=== PATIENT | female | born 1995 | race Caucasian/White ===

== ENCOUNTER → 2017-09-25 | Outpatient (CLI) | payer OTHER | LOC: WOUNDCARE 09:06 | PROVIDERS: ATTEND Surgery | DX: L02.436 Carbuncle of left lower limb (principal); S71.102A Unspecified open wound, left thigh, initial encounter; L97.122 Non-pressure chronic ulcer of left thigh with fat layer exposed; E66.01 Morbid (severe) obesity due to excess calories | CPT/HCPCS: 11042 ==

== ENCOUNTER → 2017-10-11 | Outpatient (CLI) | payer OTHER | LOC: WOUNDCARE 10:21 | PROVIDERS: ATTEND Surgery | DX: S71.102A Unspecified open wound, left thigh, initial encounter (principal); L97.122 Non-pressure chronic ulcer of left thigh with fat layer exposed; E66.01 Morbid (severe) obesity due to excess calories; L92.8 Other granulomatous disorders of the skin and subcutaneous tissue | CPT/HCPCS: 11042 ==

== ENCOUNTER → 2017-10-25 | Outpatient (CLI) | payer OTHER | LOC: WOUNDCARE 09:21 | PROVIDERS: ATTEND Surgery | DX: S71.102A Unspecified open wound, left thigh, initial encounter (principal); L97.122 Non-pressure chronic ulcer of left thigh with fat layer exposed; E66.01 Morbid (severe) obesity due to excess calories | CPT/HCPCS: 11042 ==

== ENCOUNTER → 2017-11-01 | Outpatient (CLI) | payer OTHER | LOC: WOUNDCARE 09:11 | PROVIDERS: ATTEND Surgery | DX: L97.122 Non-pressure chronic ulcer of left thigh with fat layer exposed (principal); E66.01 Morbid (severe) obesity due to excess calories; L92.8 Other granulomatous disorders of the skin and subcutaneous tissue; S71.102A Unspecified open wound, left thigh, initial encounter | CPT/HCPCS: 17250 ==

== ENCOUNTER → 2017-11-15 | Outpatient (CLI) | payer OTHER | LOC: WOUNDCARE 09:20 | PROVIDERS: ATTEND Surgery | DX: L97.122 Non-pressure chronic ulcer of left thigh with fat layer exposed (principal); E66.01 Morbid (severe) obesity due to excess calories; L92.8 Other granulomatous disorders of the skin and subcutaneous tissue; S71.102A Unspecified open wound, left thigh, initial encounter | CPT/HCPCS: 99212 ==